=== PATIENT | female | born 1965 | race Caucasian/White ===

== ENCOUNTER → 2017-03-15 | Outpatient (CLI) | payer OTHER ==
[~2017-03-15] MED LIST: ALPR-475 PO; CYCL-259 PO; PARO7.5C PO; SUMA100T3 PO
== END | disposition home or self-care (01) ==
LOC: CFH 16:37
PROVIDERS: ATTEND Physician Assistant
DX: M79.604 Pain in right leg (principal)

== ENCOUNTER 2017-09-09 04:00 | Emergency (ER) | payer OTHER ==
[~2017-09-09] VITALS: Ht 165.1 cm; Wt 79.6 kg
[2017-09-09] MEDS ORDERED: NORE-88 PO (04:23)
[2017-09-09] MEDS ORDERED: IBUP200C5 PO (04:24)
[2017-09-09] MEDS ORDERED: SODIUM CHLORIDE FLUSH 10ML SYR IVF ONE (04:30)
[2017-09-09] MEDS ORDERED: ONDANSETRON 2MG/ML, 2ML IVPush ONE (04:30)
[2017-09-09] MEDS ORDERED: ONDANSETRON 2MG/ML, 2ML ONE (04:32)
[2017-09-09 04:33] LABS: HEMATOCRIT 40.6 % (34.6-47.8); HEMOGLOBIN 13.6 g/dL (11.7-16.4); WHITE BLOOD COUNT 6.1 x10^3/uL (3.4-10)
[2017-09-09 04:37] LABS: ASPARTATE AMINO TRANSFERASE 10 U/L (15-37); BLOOD UREA NITROGEN 13 mg/dL (7-18)
[2017-09-09 04:46] LABS: IS PT STATUS REG ER OR PRE ER? YES
[2017-09-09] MEDS ORDERED: NITROGLYCERIN SINGLE TAB 0.4 MG SL PRN (05:00)
[2017-09-09] MEDS ORDERED: ASPIRIN 81 MG TABLET CHEW PO ONE (05:00)
[2017-09-09] MEDS ORDERED: NITROGLYCERIN SINGLE TAB 0.4 MG SL ONE (05:25)
[2017-09-09] MEDS ORDERED: ASPIRIN 81 MG TABLET CHEW ONE (05:25)
[2017-09-09] MEDS ORDERED: SODIUM CHLORIDE FLUSH 10ML SYR IVF PRN (06:30)
[2017-09-09 09:04] LABS: IS PT STATUS REG ER OR PRE ER? YES
[2017-09-09 09:47] VITALS: BP 113/70
== END 2017-09-09 10:16 | disposition home or self-care (01) ==
LOC: ED 05:11 → EDIP 06:29 → UNDOADMIN 06:29 → ED 10:16
DX: R07.89 Other chest pain (principal); Z88.0 Allergy status to penicillin; Z88.8 Allergy status to other drugs, medicaments and biological substances; Z98.51 Tubal ligation status
CPT/HCPCS: 36415; 71010; 80053; 83880; 84484; 85025; 93005; 96374; 99285; J2405

== ENCOUNTER → 2017-11-01 | Outpatient (CLI) | payer OTHER ==
[~2017-11-01] MED LIST changes: +IBUP200C5 PO; +NORE-88 PO
== END ==
LOC: CFH 10:24
PROVIDERS: ATTEND Nurse Practitioner Family
DX: Z02.9 Encounter for administrative examinations, unspecified (principal)

== ENCOUNTER → 2018-03-18 | Outpatient (CLI) | payer OTHER | LOC: CFH 08:53 | PROVIDERS: ATTEND Otolaryngology | DX: J32.2 Chronic ethmoidal sinusitis (principal); J32.0 Chronic maxillary sinusitis; J34.89 Other specified disorders of nose and nasal sinuses | CPT/HCPCS: 70486 ==

== ENCOUNTER → 2018-05-30 | Outpatient (CLI) | payer OTHER | LOC: STAR 08:22 | PROVIDERS: ATTEND Otolaryngology | DX: Z02.9 Encounter for administrative examinations, unspecified (principal) ==

== ENCOUNTER 2018-06-04 09:19 | Day surgery (SDC) | payer OTHER ==
[~2018-06-04] VITALS: Ht 162.6 cm; Wt 76.9 kg
[2018-06-04] MEDS ORDERED: LACTATED RINGERS 1,000 ML IV SCH (09:44)
[2018-06-04 09:48] VITALS: BP 130/79
[2018-06-04 10:17] LABS: HCG UR SG 1.013 (1.003-1.030)
[2018-06-04] MEDS ORDERED: OXYMETAZOLINE NASAL SPRAY 0.05%, 15ML ONE (11:08)
[2018-06-04] MEDS ORDERED: EPINEPHRINE 1 MG/ML, 1ML ONE (11:08)
[2018-06-04] MEDS ORDERED: LIDOCAINE/PF 1%, 30ML ONE (11:08)
[2018-06-04] MEDS ORDERED: COCAINE TOPICAL SOLN 4%, 4ML ONE (11:08)
[2018-06-04] MEDS ORDERED: FENTANYL PF 100 MCG/2ML ONE ×2 (11:23→14:22)
[2018-06-04] MEDS ORDERED: MIDAZOLAM 1 MG/ML, 2ML ONE (11:24)
[2018-06-04] MEDS ORDERED: CLINDAMYCIN 150 MG/ML, 6ML ONE (11:26)
[2018-06-04] MEDS ORDERED: PROPOFOL 100 ML ONE (11:27)
[2018-06-04] MEDS ORDERED: SUCCINYLCHOLINE 20 MG/ML, 10ML ONE (12:52)
[2018-06-04] MEDS ORDERED: ROCURONIUM 10MG/ML,5ML ONE (12:52)
[2018-06-04] MEDS ORDERED: DEXAMETHASONE 4 MG/ML, 1ML ONE (12:52)
[2018-06-04] MEDS ORDERED: ONDANSETRON 2MG/ML, 2ML ONE (12:52)
[2018-06-04] MEDS ORDERED: COCAINE TOPICAL SOLN 4%, 4ML TP ONE (13:36)
[2018-06-04] MEDS ORDERED: OXYMETAZOLINE NASAL SPRAY 0.05%, 15ML NAS ONE (13:37)
[2018-06-04] MEDS ORDERED: LIDOCAINE 1%-EPI 1:100K, 30ML INFIL ONE (13:40)
[2018-06-04] MEDS ORDERED: NEOSPORIN OINT, 15GM ONE (13:42)
[2018-06-04] MEDS ORDERED: NEOSPORIN OINT, 15GM TP ONE (13:44)
[2018-06-04] MEDS ORDERED: THROMBIN 5,000 UNIT VIAL TP ONE (13:51)
[2018-06-04] MEDS ORDERED: OXYcodone 5 MG/5 ML ORAL.SOL UDC ONE (14:22)
[2018-06-04] MEDS ORDERED: MORPHINE SULFATE 4 MG/ML, 1ML IVPush PRN (14:30)
[2018-06-04] MEDS ORDERED: OXYcodone 5 MG/5 ML ORAL.SOL UDC PO PRN (14:30)
[2018-06-04] MEDS ORDERED: ALBUTEROL SULFATE 2.5 MG/3 ML NPPB PRN (14:30)
[2018-06-04] MEDS ORDERED: ACETAMINOPHEN 325 MG TABLET PO PRN (14:30)
[2018-06-04] MEDS ORDERED: PROMETHAZINE 25 MG/ML, 1ML IV PRN (14:30)
[2018-06-04] MEDS: FENTANYL PF 100 MCG/2ML IV PRN ×2 (14:31→14:43)
[2018-06-04] MEDS ORDERED: KETOROLAC 30 MG/1 ML ONE (15:12)
[2018-06-04] MEDS ORDERED: KETOROLAC 30 MG/1 ML IVPush ONE (15:30)
== END 2018-06-04 17:17 | disposition home or self-care (01) ==
LOC: OUT 09:19
PROVIDERS: ATTEND Otolaryngology
DX: J34.89 Other specified disorders of nose and nasal sinuses (principal); J32.9 Chronic sinusitis, unspecified; G43.909 Migraine, unspecified, not intractable, without status migrainosus; Z88.0 Allergy status to penicillin; Z88.8 Allergy status to other drugs, medicaments and biological substances
CPT/HCPCS: 30140; 30520; 31267; 81025; 88304; 88311; J0171; J0330; J1100; J2250; J2405; J2704; J3010; J3490; J7120

== ENCOUNTER 2018-12-04 12:22 | Outpatient (CLI) | payer OTHER ==
[~2018-12-04 12:22] MED LIST changes: +IBUP-1623 PO; -IBUP200C5 PO
== END 2018-12-04 23:59 | disposition home or self-care (01) ==
LOC: CVU 12:22
PROVIDERS: ATTEND Internal Medicine Cardiovascular Disease
DX: I07.1 Rheumatic tricuspid insufficiency (principal); R07.89 Other chest pain; R06.02 Shortness of breath
CPT/HCPCS: 93306; 94060; 94726; 94729

== ENCOUNTER → 2020-10-14 | Outpatient (CLI) | payer OTHER ==
[~2020-10-14] MED LIST changes: -ALPR-475 PO; +ALPR0.5T7 PO
== END | disposition home or self-care (01) ==
LOC: CFH 07:51
PROVIDERS: ATTEND Family Medicine
DX: Z12.31 Encounter for screening mammogram for malignant neoplasm of breast (principal)
CPT/HCPCS: 77063; 77067